=== PATIENT | male | born 1995 | race African-American/Black ===

== ENCOUNTER 2021-10-27 22:20 | Emergency (ER) | payer OTHER ==
[~2021-10-27] VITALS: Ht 180.3 cm; Wt 83.9 kg
[2021-10-28 00:38] LABS: HEMATOCRIT 50.8 % (42.0-52.0); HEMOGLOBIN 16.8 gm/dL (14.0-18.0); MCH 30.2 pg (26.0-34.0); MCV 91.4 fL (80.0-100.0); PLATELET COUNT 228 thou/uL (150-400); RBC 5.56 mil/uL (4.50-6.00); RDW 13.7 % (10.5-14.5); WBC 3.3 thou/uL (4.0-11.0)
[2021-10-28 00:41] LABS: CALCIUM 8.9 mg/dL (8.5-10.1); CREATININE 0.9 mg/dL (0.7-1.3); POTASSIUM 3.6 mmol/L (3.5-5.1)
[2021-10-28 00:47] LABS: ALBUMIN 4.1 g/dL (3.4-5.0); TOTAL BILIRUBIN 0.7 mg/dL (0.2-1.0); TOTAL PROTEIN 7.8 g/dL (6.4-8.2)
[2021-10-28 00:48] LABS: URINE BILIRUBIN NEGATIVE (Negative); URINE BLOOD NEGATIVE (Negative); URINE CLARITY CLEAR; URINE COLOR YELLOW; URINE GLUCOSE-RANDOM* NEGATIVE (Negative); URINE KETONES NEGATIVE (Negative); URINE LEUKOCYTES-REFLEX NEGATIVE (Negative); URINE NITRITE-REFLEX NEGATIVE (Negative); URINE PROTEIN (DIPSTICK) 2+ (Negative); URINE SPECIFIC GRAVITY >= 1.030 (1.005-1.035)
[2021-10-28 01:56] LABS: SQUAMOUS 0-3 Few /LPF (0-3); URINE WBC-REFLEX 0-5 Rare /HPF (0-5)
[2021-10-28 01:57] LABS: BACTERIA-REFLEX 1-9 Few /HPF (None Seen); CELLULAR CASTS 0-3 Few /LPF (None Seen); CRYSTALS None Seen /LPF (None Seen); HYALINE CASTS 0-3 Few /LPF (None Seen); MUCUS >6 Heavy strn/LPF (None Seen); URINE RBC 1-2 Rare /HPF (NONE SEEN)
[2021-10-28 02:05] LABS: ABSOLUTE NEUTROPHILS 1.1 thou/uL (1.4-8.2)
[2021-10-28 02:06] LABS: ANISOCYTOSIS 1+; LARGE PLATELETS FEW; PLATELET ESTIMATE NORMAL; POIKILOCYTOSIS 1+
[2021-10-28] MEDS ORDERED: PRILOSEC OTC20 MG PO (03:43)
[2021-10-28] MEDS ORDERED: ZOFRAN ODT4 MG PO (03:43)
[2021-10-28] MEDS ORDERED: CARAFATE1 GM PO (03:43)
[2021-10-28 03:49] VITALS: BP 122/75
== END 2021-10-28 04:20 | disposition home or self-care (01) ==
LOC: ER 22:20
PROVIDERS: Emergency Medicine
DX: R10.13 Epigastric pain (principal); R10.12 Left upper quadrant pain; I10 Essential (primary) hypertension; F17.200 Nicotine dependence, unspecified, uncomplicated